=== PATIENT | male | born 1965 | race Caucasian/White ===

== ENCOUNTER 2017-09-27 11:11 | Observation (INO) | payer BC, MEDICARE ==
[~2017-09-27] VITALS: Ht 172.7 cm; Wt 92.7 kg
[2017-09-27] VITALS (416 sets, daily range): BP systolic 101–138; BP diastolic 65–98; PULSE 48–64; TEMP 97.7–98.4; O2SAT 92–100
[~2017-09-27 11:11] MED LIST: ASPIRIN 81M81 MG/TA2 PO; DUO-KAPS1 CAP PO; FLEXERIL 1010 MG/TAB PO; LORTAB 5/500 501 TAB PO; NO HOME MEDICATIONS; PLAVIX 75MG TAB75 MG PO; PRILOSEC 20MG20 MG PO; TOPROL XL 25MG25 MG PO
[2017-09-27] MEDS ORDERED: ZANTAC 7575 MG PO (11:36)
[2017-09-27] MEDS ORDERED: LIPITOR20 MG PO (11:37)
[2017-09-27] MEDS ORDERED: NITROSTAT0.4 MG/TAB SL (11:38)
[2017-09-27 11:53] LABS: BASO # 0.1 (0.0-0.2); BASO % 0.9 % (0.0-2.0); EOS # 0.2 (0.0-0.7); GRAN # 4.7 (1.4-6.5); HEMATOCRIT 44.3 % (42.0-52.0); HEMOGLOBIN 15.4 g/dl (13.5-18.0); LYMPH # 2.1 (1.2-3.4); LYMPH % 27.2 % (20.0-51.0); MEAN CELL VOLUME 89 fl (80.0-100.0); MEAN CORPUSCULAR HEMOGLOBIN 31 pg (27.0-31.0); MEAN CORPUSCULAR HGB CONC 35 g/dl (33.0-37.0); MEAN PLATELET VOLUME 10.8 fl (7.4-10.4); MONO # 0.5 (0.1-0.6); MONO % 6.6 % (1.7-9.3); PLATELET COUNT 211 K/mm3 (130-400); RED BLOOD COUNT 4.99 M/mm3 (4.20-5.60)
[2017-09-27 12:01] LABS: ALANINE AMINOTRANSFERASE 40 U/L (21-72); ALBUMIN 3.7 gm/dL (3.5-5.0); ALKALINE PHOSPHATASE 93 U/L (50-136); ANION GAP 11 mmol/L (7-16); AST,SGOT 29 U/L (15-37); BILIRUBIN,TOTAL 0.8 mg/dL (0.0-1.0); BLOOD UREA NITROGEN 15 mg/dL (9-20); CALCIUM 8.4 mg/dL (8.4-10.2); CARBON DIOXIDE 23 mmol/L (22-30); CHLORIDE 107 mmol/L (98-107); CREATININE, serum 0.81 mg/dL (0.66-1.25); GLUCOSE 117 mg/dL (74-106); POTASSIUM 3.9 mmol/L (3.4-5.0); SODIUM 141 mmol/L (137-145); TOTAL PROTEIN 7.3 gm/dL (6.4-8.2)
[2017-09-27 12:14] LABS: TROPONIN-I < 0.012 ng/mL (0.000-0.034)
[2017-09-27 13:34] LABS: INR 1.1 (0.8-3.0); PROTHROMBIN TIME 13.1 SECONDS (9.7-12.8)
[2017-09-27 13:37] LABS: PARTIAL THROMBOPLASTIN TIME 26.1 SECONDS (26.0-37.0)
[2017-09-28] VITALS (398 sets, daily range): BP systolic 122–139; BP diastolic 60–84; PULSE 47–53; TEMP 97.7–98.2; O2SAT 87–100
[2017-09-28] MEDS ORDERED: BRILINTA90 MG PO (12:11)
== END 2017-09-28 13:17 | disposition home or self-care (01) ==
LOC: COL.ER 11:11 → ICU 13:01
PROVIDERS: Emergency Medicine
DX: I25.110 Atherosclerotic heart disease of native coronary artery with unstable angina pectoris (principal); I10 Essential (primary) hypertension; E78.00 Pure hypercholesterolemia, unspecified; F17.210 Nicotine dependence, cigarettes, uncomplicated; Z79.82 Long term (current) use of aspirin; Z88.0 Allergy status to penicillin; Z88.8 Allergy status to other drugs, medicaments and biological substances; Z82.49 Family history of ischemic heart disease and other diseases of the circulatory system
CPT/HCPCS: 99223-AI; C9600; G0378; J0583; J2250; J2405; J3010; J7030; Q9967

== ENCOUNTER 2019-11-25 13:35 | Emergency (ER) | payer BC, MEDICARE ==
[~2019-11-25] VITALS: Ht 172.7 cm; Wt 90.9 kg
[~2019-11-25 13:35] MED LIST changes: +ASPIRIN 32325 MG/TAB PO; +BRILINTA90 MG PO; +LIPITOR20 MG PO; +METAXALL800 MG PO; +NEURONTIN300 MG/CAP PO; +NITROSTAT0.4 MG/TAB SL; +NORCO 325 MG-101 TAB PO; +VALIUM 5MG T5 MG/TAB PO; +ZANTAC 7575 MG PO
[2019-11-25 13:40] VITALS: TEMP 98.5
[2019-11-25] MEDS ORDERED: LIDODERM 5% PATC1 EA TP (15:55)
[2019-11-25] MEDS ORDERED: MEDROL 4MG DOSPA4 MG PO (15:56)
[2019-11-25 16:40] VITALS: BP 121/88; PULSE 65
== END 2019-11-25 16:40 | disposition home or self-care (01) ==
LOC: COL.ER 13:35
DX: M54.5 Low back pain (principal); G89.29 Other chronic pain; I10 Essential (primary) hypertension; F17.210 Nicotine dependence, cigarettes, uncomplicated; Z88.0 Allergy status to penicillin; Z88.8 Allergy status to other drugs, medicaments and biological substances; Z79.82 Long term (current) use of aspirin; Z95.5 Presence of coronary angioplasty implant and graft
CPT/HCPCS: J1885; J3360